=== PATIENT | male | born 1960 | race Caucasian/White ===

== ENCOUNTER 2018-03-06 18:21 | Emergency (ER) | payer SELFPAY ==
[~2018-03-06] VITALS: Ht 175.2 cm; Wt 77.1 kg
== END 2018-03-06 19:43 | disposition home or self-care (01) ==
LOC: ED 18:21
DX: S91.311A Laceration without foreign body, right foot, initial encounter (principal); Z23 Encounter for immunization; W22.8XXA Striking against or struck by other objects, initial encounter; Y93.89 Activity, other specified; Y92.89 Other specified places as the place of occurrence of the external cause; Y99.8 Other external cause status